=== PATIENT | female | born 1955 | race Hispanic/Latino ===

== ENCOUNTER 2022-02-21 17:05 | Emergency (ER) | payer MEDICARE ==
[~2022-02-21] VITALS: Ht 160 cm; Wt 62.6 kg
[2022-02-21] MEDS ORDERED: SODIUM CHLORIDE 0.9% 1000ML 1,000 ML IV STA (17:34)
[2022-02-21] MEDS ORDERED: FAMOTIDINE 20 MG/2 ML VIAL IV ONE (17:45)
[2022-02-21] MEDS ORDERED: ONDANSETRON HCL INJ 2MG/ML 2ML 2 MG/ML VIAL IV ONE (17:45)
[2022-02-21] MEDS ORDERED: KETOROLAC TROMETHAMINE 30 MG/ML VIAL IV ONE (17:45)
[2022-02-21] MEDS ORDERED: ACETAMINOPHEN 325 MG TAB PO ONE (17:45)
[2022-02-21] MEDS ORDERED: CEFTRIAXONE 1 GM VIAL IV ONE (17:45)
[2022-02-21] MEDS ORDERED: SODIUM CHLORIDE 0.9% 1000ML 1,000 ML ONE (18:06)
[2022-02-21] MEDS ORDERED: CEFTRIAXONE 1 GM VIAL ONE (18:06)
[2022-02-21] MEDS ORDERED: IBUPROFEN200 MG PO (18:31)
[2022-02-21] MEDS ORDERED: ACETAMINOPHEN-1 EAC4 PO (18:31)
[2022-02-21] MEDS ORDERED: ONDANSETRON ODT4 MG PO (18:31)
[2022-02-21] MEDS ORDERED: CEFDINIR300 MG PO (18:31)
== END 2022-02-21 18:41 | disposition home or self-care (01) ==
LOC: FSED 17:11
DX: R50.9 Fever, unspecified (principal); N30.91 Cystitis, unspecified with hematuria; R10.30 Lower abdominal pain, unspecified; R11.0 Nausea; R51.9 Headache, unspecified; I10 Essential (primary) hypertension
CPT/HCPCS: 74176; 80053; 81003; 85025; 96374; 96375; 99284; J0696; J1885; J2405; J7030